=== PATIENT | male | born 1945 | race Caucasian/White ===

== ENCOUNTER → 2017-03-18 | Outpatient (CLI) | payer MEDICARE ==
[~2017-03-18] MED LIST: COUMADIN5 MG PO; FLOMAX DPS0.4 MG PO; GLUCOPHAGE-DPS500 MG PO; LEVOTHYROXINE75 MCG PO; TAMBOCOR DPS50 MG PO; TENORMIN100 MG PO; WARFARIN SODIUM5 MG PO; ZYLOPRIM-DPS100 MG PO
== END | disposition home or self-care (01) ==
LOC: RESC 09:00
DX: R06.02 Shortness of breath (principal)